=== PATIENT | female | born 1955 | race Caucasian/White ===

== ENCOUNTER 2017-01-06 23:12 | Emergency (ER) | payer BC ==
[2017-01-06 23:41] VITALS: RESP 18; TEMP 98.1; O2SAT 99
--- NOTE | 2017-01-07 00:21 | ED PDOC ---
HPI: Hypertension/Hypotension Time Seen by Provider: 01/06/17 23:25 Chief Complaint (Nursing): High Blood Pressure Chief Complaint (Provider): High Blood Pressure History Per: Patient History/Exam Limitations: no limitations Onset/Duration Of Symptoms: Mins (prior to arrival) Current Symptoms Are (Timing): Still Present Additional Complaint(s): Sylvia Wilson is a 61 year old female with previous medical history of hypertension, who presents to the emergency department with a complaint of elevated blood pressure (204/104) at home associated with a headache earlier today that has since resolved prior to arrival. Denies any chest pain, palpitations or shortness of breath. Currently takes Carvedilol and Losartan for her hypertension. PMD: Alonso Leyva MD Past Medical History Reviewed: Historical Data, Nursing Documentation, Vital Signs Vital Signs: Last Vital Signs Temp 98.1 F 01/06/17 23:39 Pulse 59 L 01/06/17 23:39 Resp 18 01/06/17 23:39 BP 161/97 H 01/06/17 23:39 Pulse Ox 99 01/06/17 23:39 - Medical History PMH: HTN - Surgical History Surgical History: No Surg Hx - Family History Family History: States: Unknown Family Hx - Social History Ex-Smoker (has not smoked in the last 12 months): Yes Alcohol: None Drugs: Denies - Allergies Allergies/Adverse Reactions: Allergies Allergy/AdvReac Type Severity Reaction Status Date / Time No Known Allergies Allergy Unverified 03/07/13 10:17 Review of Systems ROS Statement: Except As Marked, All Systems Reviewed And Found Negative Cardiovascular: Positive for: Other (elevated blood pressure). Negative for: Chest Pain, Palpitations Respiratory: Negative for: Shortness of Breath Neurological: Positive for: Headache (has since resolved) Physical Exam - Reviewed Nursing Documentation Reviewed: Yes Vital Signs Reviewed: Yes - Physical Exam Appears: Positive for: Well, Non-toxic, No Acute Distress Head Exam: Positive for: ATRAUMATIC, NORMAL INSPECTION, NORMOCEPHALIC Skin: Positive for: Normal Color, Warm, Dry Eye Exam: Positive for: Normal appearance Neck: Positive for: Normal, Painless ROM, Supple Cardiovascular/Chest: Positive for: Regular Rate, Rhythm Respiratory: Positive for: CNT, Normal Breath Sounds Gastrointestinal/Abdominal: Positive for: Normal Exam, Bowel Sounds, Soft. Negative for: Tenderness Back: Positive for: Normal Inspection. Negative for: L CVA Tenderness, R CVA Tenderness Extremity: Positive for: Normal ROM. 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 instructed to follow up with pcp for further bp managemnet. Scribe Attestation: Documented by Lori Samayoa, acting as a scribe for Lia Silver MD. Provider Scribe Attestation: All medical record entries made by the Scribe were at my direction and personally dictated by me. I have reviewed the chart and agree that the record accurately reflects my personal performance of the history, physical exam, medical decision making, and the department course for this patient. I have also personally directed, reviewed, and agree with the discharge instructions and disposition. Disposition - Clinical Impression Clinical Impression: Hypertension - Patient ED Disposition Is Patient to be Admitted: No Counseled Patient/Family Regarding: Studies Performed, Diagnosis, Need For Followup - Disposition [facility]errals: [facility] [Outside] [facility] [Outside] Disposition: Routine/Home Disposition Time: 02:00 Condition: IMPROVED Additional Instructions: follow up with your doctor in 1-2 days for blood pressure check return to the ED with any worsening or concerning symptoms Instructions: Hypertension (ED)
[2017-01-07 02:15] VITALS: BP 147/95; PULSE 57
--- NOTE | 2017-01-08 06:51 | CARD ---
APPROVED REPORT EKG Measurement Heart [id number] <Conclusion> Sinus bradycardia Incomplete right bundle branch block Borderline ECG
== END 2017-01-07 02:16 | disposition home or self-care (01) ==
LOC: H.ER 23:12
DX: I10 Essential (primary) hypertension (principal); Z87.891 Personal history of nicotine dependence